=== PATIENT | female | born 1940 | race Two or more races ===

== ENCOUNTER 2019-03-12 12:03 | Outpatient (CLI) | payer OTHER | END 2019-03-12 12:13 | disposition home or self-care (01) | LOC: MAMO-SONO 12:03 | DX: Z12.31 Encounter for screening mammogram for malignant neoplasm of breast (principal); Z87.898 Personal history of other specified conditions; D05.12 Intraductal carcinoma in situ of left breast; N60.11 Diffuse cystic mastopathy of right breast; N60.12 Diffuse cystic mastopathy of left breast ==

== ENCOUNTER 2020-06-06 06:32 | Day surgery (SDC) | payer OTHER ==
[~2020-06-06 06:32] MED LIST: ARIMIDEX PO; LEVO-T50 MCG PO; LOSARTAN POTASS25 MG PO; MAXIMUM D3325 MCG PO; SIMVASTATIN20 MG PO
== END 2020-06-06 15:35 | disposition home or self-care (01) ==
LOC: CIR.AMB 06:32
PROVIDERS: ATTEND Surgery
DX: C50.411 Malignant neoplasm of upper-outer quadrant of right female breast (principal); C77.3 Secondary and unspecified malignant neoplasm of axilla and upper limb lymph nodes; Z20.828 Contact with and (suspected) exposure to other viral communicable diseases

== ENCOUNTER 2020-10-09 13:53 | Emergency (ER) | payer OTHER ==
[~2020-10-09] VITALS: Ht 157.5 cm; Wt 55.8 kg
[2020-10-09] MEDS ORDERED: IBRANCE100 MG PO (14:04)
[2020-10-09] MEDS ORDERED: PERCOCET 5-3251 EACH PO (16:31)
[2020-10-09] MEDS ORDERED: SKELAXIN800 MG PO (16:31)
[2020-10-09] MEDS ORDERED: DICLOFENAC POTA50 MG PO (16:31)
[2020-10-09] MEDS ORDERED: SKELAGESIC TOP (16:31)
== END 2020-10-09 17:58 | disposition home or self-care (01) ==
LOC: ER 13:53
DX: G89.21 Chronic pain due to trauma (principal); M54.5 Low back pain

== ENCOUNTER 2020-10-12 23:15 | Inpatient (IN) | payer OTHER ==
[~2020-10-12] VITALS: Ht 157.5 cm; Wt 55.8 kg
[~2020-10-12 23:15] MED LIST changes: +DICLOFENAC POTA50 MG PO; +IBRANCE100 MG PO; +PERCOCET 5-3251 EACH PO; +SKELAGESIC TOP; +SKELAXIN800 MG PO
== END 2020-10-17 21:10 | disposition home or self-care (01) | DRG 543 ==
LOC: ER 23:15 → MEDI 10-13 10:07 → SURH 10-13 20:01 → MEDI 10-13 20:47
PROVIDERS: ADMIT Internal Medicine; ATTEND Internal Medicine
DX: M48.56XA Collapsed vertebra, not elsewhere classified, lumbar region, initial encounter for fracture (principal); N39.0 Urinary tract infection, site not specified; C50.911 Malignant neoplasm of unspecified site of right female breast; I10 Essential (primary) hypertension; Z20.822 Contact with and (suspected) exposure to COVID-19; M48.54XA Collapsed vertebra, not elsewhere classified, thoracic region, initial encounter for fracture
CPT/HCPCS: 72146; 72158

== ENCOUNTER 2021-09-13 15:45 | Emergency (ER) | payer OTHER ==
[~2021-09-13] VITALS: Ht 152.4 cm; Wt 51.7 kg
== END 2021-09-14 00:02 | disposition home or self-care (01) ==
LOC: ER 15:45
DX: M54.50 Low back pain, unspecified (principal); M62.830 Muscle spasm of back; Z91.018 Allergy to other foods; E03.9 Hypothyroidism, unspecified; I10 Essential (primary) hypertension; Z85.9 Personal history of malignant neoplasm, unspecified

== ENCOUNTER 2022-05-13 17:58 | Emergency (ER) | payer OTHER ==
[~2022-05-13] VITALS: Ht 154.9 cm; Wt 49.9 kg
[2022-05-13] MEDS ORDERED: PEPCID AC20 MG PO (23:39)
== END 2022-05-14 00:26 | disposition home or self-care (01) ==
LOC: ER 17:58
DX: R11.2 Nausea with vomiting, unspecified (principal); R53.1 Weakness; I10 Essential (primary) hypertension; E03.9 Hypothyroidism, unspecified; Z85.9 Personal history of malignant neoplasm, unspecified; Z91.018 Allergy to other foods; Z20.822 Contact with and (suspected) exposure to COVID-19

== ENCOUNTER 2022-09-04 15:28 | Emergency (ER) | payer OTHER ==
[~2022-09-04] VITALS: Ht 154.9 cm; Wt 50.8 kg
[~2022-09-04 15:28] MED LIST changes: +IBRANCE75 M1; +PEPCID AC20 MG PO
[2022-09-04] MEDS ORDERED: MIRTAZAPINE7.5 MG (16:10)
[2022-09-04] MEDS ORDERED: ATORVASTATIN CA20 MG (16:10)
== END 2022-09-04 20:53 | disposition home or self-care (01) ==
LOC: ER 15:28
DX: S09.8XXA Other specified injuries of head, initial encounter (principal); W18.39XA Other fall on same level, initial encounter; Y93.89 Activity, other specified; Y92.018 Other place in single-family (private) house as the place of occurrence of the external cause; S69.82XA Other specified injuries of left wrist, hand and finger(s), initial encounter; S89.82XA Other specified injuries of left lower leg, initial encounter; Z91.041 Radiographic dye allergy status; Z91.040 Latex allergy status; Z91.018 Allergy to other foods

== ENCOUNTER 2022-10-05 18:08 | Inpatient (IN) | payer OTHER ==
[~2022-10-05] VITALS: Ht 154.9 cm; Wt 49.9 kg
[~2022-10-05 18:08] MED LIST changes: +ATORVASTATIN CA20 MG; +MIRTAZAPINE7.5 MG
--- NOTE | 2022-10-05 19:03 | NUR ---
SE RECIBE PTE ALERTA Y ORIENTADA X3 EN AMBULANCIA [place] DE FAMILIAR, PTE REFIERE VENIR POR CAIDA Y DOLOR EN CADERA. SE MIDEN S/V A PTE Y SE COLOCAN EN FRANCISCA.
--- NOTE | 2022-10-05 19:13 | NUR ---
SE EDUCA A PTE SOBRE TX MEDICO ESTA REFIERE ENTENDER, SE ENZO MUESTRAS DE LABORATORIO UTILIZANDO MEDIDAS ASEPTICAS, SE COLOCA H/L A PTE Y SE ADMINISTRAN MEDICAMENTOS LOS CUALES TOLERA. SE COLOCA YANG UTILIZANDO MEDIDAS ESTERILES. SE NOTIFICA ESTUDIO DE RX PENDIENTE.
[2022-10-11] MEDS ORDERED: PERCOCET 5-3251 EACH PO (08:17)
[2022-10-11] MEDS ORDERED: ELIQUIS2.5 MG PO (08:17)
[2022-10-11] MEDS ORDERED: LEVOFLOXACIN750 MG PO (15:55)
== END 2022-10-11 22:29 | DRG 522 ==
LOC: ER 18:08 → SURG 20:52
PROVIDERS: ADMIT Orthopaedic Surgery; ATTEND Orthopaedic Surgery
PROC: 0MBM0ZZ Excision of Left Hip Bursa and Ligament, Open Approach (ICD-10-PCS; 2022-10-07)
PROC: 0SR90JA Replacement of Right Hip Joint with Synthetic Substitute, Uncemented, Open Approach (ICD-10-PCS; principal; 2022-10-07 14:00)
DX: S72.031A Displaced midcervical fracture of right femur, initial encounter for closed fracture (principal); D62 Acute posthemorrhagic anemia; C79.51 Secondary malignant neoplasm of bone; M81.0 Age-related osteoporosis without current pathological fracture; M16.11 Unilateral primary osteoarthritis, right hip; Z96.641 Presence of right artificial hip joint; Z20.822 Contact with and (suspected) exposure to COVID-19; E03.9 Hypothyroidism, unspecified; I10 Essential (primary) hypertension; W19.XXXA Unspecified fall, initial encounter; A49.3 Mycoplasma infection, unspecified site; C50.911 Malignant neoplasm of unspecified site of right female breast

== ENCOUNTER 2022-12-25 23:28 | Inpatient (IN) | payer OTHER ==
[~2022-12-25] VITALS: Ht 154.9 cm; Wt 49.0 kg
[~2022-12-25 23:28] MED LIST changes: +ELIQUIS2.5 MG PO; +LEVOFLOXACIN750 MG PO
== END 2023-01-05 12:23 | disposition home or self-care (01) | DRG 690 ==
LOC: ER 23:28 → MEDI 12-26 16:08
PROVIDERS: General Practice; Internal Medicine; ADMIT Internal Medicine; ATTEND Internal Medicine
PROC: BW21ZZZ Computerized Tomography (CT Scan) of Abdomen and Pelvis (ICD-10-PCS; 2022-12-26)
PROC: 02HV33Z Insertion of Infusion Device into Superior Vena Cava, Percutaneous Approach (ICD-10-PCS; principal; 2022-12-27)
PROC: BW21ZZZ Computerized Tomography (CT Scan) of Abdomen and Pelvis (ICD-10-PCS; 2023-01-01)
DX: N39.0 Urinary tract infection, site not specified (principal); R31.0 Gross hematuria; N13.1 Hydronephrosis with ureteral stricture, not elsewhere classified; D64.9 Anemia, unspecified; I10 Essential (primary) hypertension; E03.9 Hypothyroidism, unspecified; Z20.822 Contact with and (suspected) exposure to COVID-19

== ENCOUNTER 2023-04-21 07:56 | Emergency (ER) | payer OTHER ==
[~2023-04-21] VITALS: Ht 157.5 cm; Wt 45.4 kg
[2023-04-21] MEDS ORDERED: ANASTROZOLE1 MG PO (08:15)
[2023-04-21 09:01] LABS: HEMATOCRIT 43.2 % (36.0-45.00); HEMOGLOBIN 14.5 g/dL (12.0-15.00); MEAN CORPUSCULAR HEMOGLOBIN 30.5 pg (27.00-32.0); MEAN CORPUSCULAR HGB CONC 33.6 g/dl (32.0-36.0); PLATELET COUNT 229 K/uL (150-450); RED BLOOD COUNT 4.74 M/uL (4.00-6.00); RED CELL DISTRIBUTION WIDTH 15.5 % (11.5-14.5)
[2023-04-21 09:31] LABS: CALCIUM 10.1 mg/dL (8.5-10.1); CREATININE SERUM 0.7 mg/dL (0.55-1.02); GFR 79.72; POTASSIUM 4.46 mEq/L (3.5-5.1)
[2023-04-21 17:02] LABS: PH,URINE 7.5 (5.0-8.0); URINE APPEARANCE Cloudy; URINE BILIRRUBIN Negative (NEGATIVE); URINE BLOOD Small; URINE COLOR Yellow; URINE GLUCOSE Negative (NEGATIVE); URINE LEUKOCYTE Large; URINE NITRATE Positive; URINE PROTEIN Trace (NEGATIVE); URINE UROBILINOGEN 0.2 E.U./dl
[2023-04-21 17:03] LABS: URINE EPITHELIAL CELLS 1.8 uL (0.0-38.8); URINE RBC 19.9 uL (0.0-20.8); URINE WBC 1262.1 uL (0.0-23.2)
[2023-04-21 17:20] LABS: URINE BACTERIA > 9821.5 uL (0.0-1933)
== END 2023-04-22 00:31 | disposition home or self-care (01) ==
LOC: ER 07:56
PROVIDERS: Emergency Medicine
DX: N39.0 Urinary tract infection, site not specified (principal); E78.00 Pure hypercholesterolemia, unspecified; E03.9 Hypothyroidism, unspecified; I10 Essential (primary) hypertension; Z91.040 Latex allergy status; Z91.018 Allergy to other foods; Z91.041 Radiographic dye allergy status; G30.8 Other Alzheimer's disease; F02.80 Dementia in other diseases classified elsewhere, unspecified severity, without behavioral disturbance, psychotic disturbance, mood disturbance, and anxiety; Z74.01 Bed confinement status; B96.4 Proteus (mirabilis) (morganii) as the cause of diseases classified elsewhere
CPT/HCPCS: 36415; 96365; 96366; 99284; J0744; J7030

== ENCOUNTER 2023-12-10 21:50 | Inpatient (IN) | payer OTHER ==
[~2023-12-10] VITALS: Ht 152.4 cm; Wt 45.4 kg
[~2023-12-10 21:50] MED LIST changes: +ANASTROZOLE1 MG PO; +CEFDINIR300 MG PO
--- NOTE | 2023-12-10 21:53 | NUR ---
PACIENTE ALERTA Y ORIENTADA X3 CON YANG DESDE BRITTNY QUE REFIERE QUE DESDE EL BRODY DE GABRIELLE PRESENTA ANURIA. REFIERE DOLOR EN EL AREA DEL ABDOMEN.
--- NOTE | 2023-12-10 23:15 | NUR ---
SE LE ORIENTA A PACIENTE SOBRE LA ORDEN MEDICA, REFIERE ENTENDER LAS MISMAS. SE LE ENZO LAS MUETRAS, SE REALIZA CAMBIO DE YANG CON MEDIDAS ASEPTICAS MAS ESTERILES Y SE REALIZA CT KRAIG LA ORDEN MEDICA.
[2023-12-10 23:37] LABS: HEMATOCRIT 46.7 % (36.0-45.00); HEMOGLOBIN 15.8 g/dL (12.0-15.00); MEAN CELL VOLUME 91.3 fL (80.00-100.00); MEAN CORPUSCULAR HEMOGLOBIN 30.8 pg (27.00-32.0); MEAN CORPUSCULAR HGB CONC 33.8 g/dl (32.0-36.0); PLATELET COUNT 230 K/uL (150-450); RED BLOOD COUNT 5.11 M/uL (4.00-6.00); RED CELL DISTRIBUTION WIDTH 13.7 % (11.5-14.5)
[2023-12-10 23:57] LABS: INR 1.01; PARTIAL THROMBOPLASTIN TIME 26.2 SECONDS (22.0-34.0); PROTHROMBIN TIME 10.6 SECONDS (9.0-11.5)
[2023-12-11 00:02] LABS: ALBUMIN 3.3 gm/dL (3.4-5.0); BILIRUBIN TOTAL 0.26 mg/dL (0.3-1.2); CALCIUM 9.8 mg/dL (8.5-10.1); CREATININE SERUM 0.71 mg/dL (0.55-1.02); GFR 78.43; GLOBULINA 4.5 G/DL (2.4-3.5); POTASSIUM 4.62 mEq/L (3.5-5.1); TOTAL PROTEIN 7.8 gm/dL (6.4-8.2)
[2023-12-11 00:05] LABS: URINE APPEARANCE Turbid; URINE BILIRRUBIN Negative (NEGATIVE); URINE BLOOD Moderate; URINE COLOR Yellow; URINE GLUCOSE Negative (NEGATIVE); URINE KETONE Negative (NEGATIVE); URINE LEUKOCYTE Large; URINE NITRATE Positive; URINE PROTEIN 30 (NEGATIVE); URINE UROBILINOGEN 0.2 E.U./dl
[2023-12-11 00:08] LABS: URINE CAST 1.83 uL (0.0-1.40); URINE EPITHELIAL CELLS 1.8 uL (0.0-38.8); URINE RBC 53.5 uL (0.0-20.8)
[2023-12-11 00:26] LABS: URINE BACTERIA > 9821.5 uL (0.0-1933); URINE WBC > 5548.3 uL (0.0-23.2)
[2023-12-11] MEDS ORDERED: CIPROFLOXACIN IN 5 % DEXTROSE 400 MG/200 ML PIGGYBAG IV ONE ×2 (00:30→00:31)
--- NOTE | 2023-12-11 00:48 | NUR ---
SE EDUCA A PTE Y A FAMILIAR SOBRE USO Y EFECTO DE MEDICACION POR ORDEN MEDICA LA MISMA REFIERE ENTENDER. SE CANALIZA EN KARENO INOCENCIO #20 POR DONDE SE COLOCA MEDICACION AL CUAL PTE NO PRESENTA REACCION ADVERSA. SE TODD LA MISMA BAJO COMODIDAD CON BARANDAS ELEVADAS EN SEGUIMIENTO DE [place].
[2023-12-11] MEDS ORDERED: 0.9 % SODIUM CHLORIDE 1,000 ML IV SCH ×2 (07:45→17:45)
--- NOTE | 2023-12-11 07:46 | NUR ---
SE RECIBE PTE DEL TURNO ANTERIOR ALERTA Y ORIENTADA X3 EN CAMA #12 CON BARANDAS ELEVADAS. SE ORIENTA SOBRE CONTINUIDAD DE CUIDADO CLINICO. PTE CON CELIA
[2023-12-11] MEDS ORDERED: CIPROFLOXACIN IN 5 % DEXTROSE 200 ML IV SCH (09:00)
[2023-12-11] MEDS ORDERED: CEFTRIAXONE SODIUM 2,000 MG in 0.9 % SODIUM CHLORIDE 100 ML IV SCH (17:00)
[2023-12-11] MEDS ORDERED: FAMOTIDINE/PF 20 MG in 0.9 % SODIUM CHLORIDE 100 ML IV SCH (17:00)
[2023-12-11] MEDS ORDERED: ACETAMINOPHEN 325 MG TABLET PO PRN (17:15)
[2023-12-11] MEDS ORDERED: CEFTRIAXONE SODIUM 2,000 MG VIAL ONE (17:20)
[2023-12-11] MEDS ORDERED: FAMOTIDINE/PF 20 MG/2 ML VIAL ONE (17:20)
[2023-12-11] MEDS ORDERED: APIXABAN 2.5 MG TABLET PO SCH (17:34)
[2023-12-11] MEDS ORDERED: LOSARTAN POTASSIUM 25 MG TABLET PO SCH (17:35)
[2023-12-11] MEDS ORDERED: LACTULOSE 10 G/15 ML ML PO ONE (18:00)
[2023-12-11 19:15] LABS: INR 1.05; PARTIAL THROMBOPLASTIN TIME 25.8 SECONDS (22.0-34.0)
[2023-12-12] MEDS ORDERED: LEVOTHYROXINE SODIUM 25 MCG TABLET PO SCH (06:00)
[2023-12-12 06:23] LABS: HEMATOCRIT 39.4 % (36.0-45.00); HEMOGLOBIN 14.1 g/dL (12.0-15.00); MEAN CELL VOLUME 90.7 fL (80.00-100.00); MEAN CORPUSCULAR HEMOGLOBIN 32.5 pg (27.00-32.0); MEAN CORPUSCULAR HGB CONC 35.8 g/dl (32.0-36.0); PLATELET COUNT 431 K/uL (150-450); RED BLOOD COUNT 4.34 M/uL (4.00-6.00); RED CELL DISTRIBUTION WIDTH 14.2 % (11.5-14.5)
[2023-12-12] MEDS ORDERED: ANASTROZOLE 1 MG PO SCH (09:00)
[2023-12-12] MEDS ORDERED: FAMOTIDINE/PF 20 MG in 0.9 % SODIUM CHLORIDE 100 ML IV SCH (09:00)
[2023-12-12] MEDS ORDERED: LOSARTAN POTASSIUM 25 MG TABLET PO NR (18:30)
[2023-12-12] MEDS ORDERED: SODIUM CHLORIDE 0.45 % 1,000 ML IV SCH (18:30)
[2023-12-13 06:44] LABS: HEMATOCRIT 39.8 % (36.0-45.00); HEMOGLOBIN 13.5 g/dL (12.0-15.00); MEAN CELL VOLUME 90.8 fL (80.00-100.00); MEAN CORPUSCULAR HEMOGLOBIN 30.7 pg (27.00-32.0); MEAN CORPUSCULAR HGB CONC 33.8 g/dl (32.0-36.0); PLATELET COUNT 186 K/uL (150-450); RED BLOOD COUNT 4.39 M/uL (4.00-6.00); RED CELL DISTRIBUTION WIDTH 13.5 % (11.5-14.5)
[2023-12-13 07:13] LABS: ALBUMIN 2.7 gm/dL (3.4-5.0); BILIRUBIN TOTAL 0.28 mg/dL (0.3-1.2); CALCIUM 9.2 mg/dL (8.5-10.1); CREATININE SERUM 0.42 mg/dL (0.55-1.02); GFR 143.74; GLOBULINA 3.7 G/DL (2.4-3.5); MAGNESIUM 2.1 mg/dL (1.8-2.4); PHOSPHOROUS 4.5 mg/dL (2.5-4.9); POTASSIUM 4.61 mEq/L (3.5-5.1); TOTAL PROTEIN 6.4 gm/dL (6.4-8.2)
[2023-12-13 07:14] LABS: C-REACTIVE PROTEIN 2.14 MG/DL (0.00-0.29)
[2023-12-13] MEDS ORDERED: LOSARTAN POTASSIUM 50 MG TABLET PO SCH (09:00)
[2023-12-13] MEDS ORDERED: FAMOTIDINE/PF 20 MG in 0.9 % SODIUM CHLORIDE 100 ML IV SCH (09:00)
[2023-12-14 11:34] LABS: PH,URINE 7.5 (5.0-8.0); URINE APPEARANCE Clear; URINE BILIRRUBIN Negative (NEGATIVE); URINE BLOOD Negative; URINE COLOR Yellow; URINE GLUCOSE Negative (NEGATIVE); URINE KETONE Negative (NEGATIVE); URINE LEUKOCYTE Moderate; URINE NITRATE Negative; URINE PROTEIN Negative (NEGATIVE); URINE UROBILINOGEN 0.2 E.U./dl
[2023-12-14 11:37] LABS: URINE BACTERIA 55.4 uL (0.0-1933); URINE EPITHELIAL CELLS 2.4 uL (0.0-38.8); URINE RBC 7.6 uL (0.0-20.8); URINE WBC 29.3 uL (0.0-23.2)
[2023-12-14 11:52] LABS: URINE CAST 0.15 uL (0.0-1.40)
[2023-12-14] MEDS ORDERED: MINERAL OIL 133 ML ENEMA RECTAL NR (14:15)
[2023-12-14] MEDS ORDERED: MINERAL OIL 30 ML BLIST.PACK PO NR (14:15)
[2023-12-14] MEDS ORDERED: MAGNESIUM HYDROXIDE 30 ML BLIST.PACK PO NR (14:15)
[2023-12-14] MEDS ORDERED: LACTULOSE 20 G/30 ML BLIST.PACK PO NR (14:31)
[2023-12-15 06:52] LABS: HEMATOCRIT 41.2 % (36.0-45.00); MEAN CELL VOLUME 91.2 fL (80.00-100.00); PLATELET COUNT 210 K/uL (150-450); RED BLOOD COUNT 4.52 M/uL (4.00-6.00); RED CELL DISTRIBUTION WIDTH 13.8 % (11.5-14.5)
[2023-12-15 07:26] LABS: ALBUMIN 2.8 gm/dL (3.4-5.0); BILIRUBIN TOTAL 0.51 mg/dL (0.3-1.2); CALCIUM 9.2 mg/dL (8.5-10.1); CREATININE SERUM 0.43 mg/dL (0.55-1.02); GFR 139.89; MAGNESIUM 2.4 mg/dL (1.8-2.4); POTASSIUM 4.42 mEq/L (3.5-5.1); TOTAL PROTEIN 6.8 gm/dL (6.4-8.2)
[2023-12-15] MEDS ORDERED: MAGNESIUM HYDROXIDE 30 ML BLIST.PACK PO SCH (10:00)
[2023-12-15] MEDS ORDERED: MINERAL OIL 30 ML BLIST.PACK PO SCH (10:00)
[2023-12-15] MEDS ORDERED: LACTULOSE 20 G/30 ML BLIST.PACK PO SCH (10:00)
[2023-12-15] MEDS ORDERED: AMLODIPINE BESYLATE 5 MG TABLET PO SCH (17:00)
[2023-12-16] MEDS ORDERED: CEFDINIR300 MG PO (17:02)
[2023-12-16] MEDS ORDERED: AMLODIPINE BESYL5 MG PO (17:02)
[2023-12-16] MEDS ORDERED: KRISTALOSE20 GM PO (17:04)
== END 2023-12-16 17:43 | disposition home or self-care (01) | DRG 690 ==
LOC: ER 21:50 → MEDI 12-11 17:46
PROVIDERS: General Practice; Internal Medicine Infectious Disease; ADMIT Internal Medicine; ATTEND Internal Medicine
PROC: BW21ZZZ Computerized Tomography (CT Scan) of Abdomen and Pelvis (ICD-10-PCS; principal; 2023-12-10)
PROC: B020ZZZ Computerized Tomography (CT Scan) of Brain (ICD-10-PCS; 2023-12-13)
DX: N39.0 Urinary tract infection, site not specified (principal); K56.41 Fecal impaction; E03.8 Other specified hypothyroidism; Z74.01 Bed confinement status; B96.4 Proteus (mirabilis) (morganii) as the cause of diseases classified elsewhere; D72.829 Elevated white blood cell count, unspecified; R41.82 Altered mental status, unspecified; I10 Essential (primary) hypertension

== ENCOUNTER 2025-04-04 22:07 | Inpatient (IN) | payer OTHER ==
[~2025-04-04] VITALS: Ht 157.5 cm; Wt 63.5 kg
[~2025-04-04 22:07] MED LIST changes: +AMLODIPINE BESYL5 MG PO; +KRISTALOSE20 GM PO
--- NOTE | 2025-04-04 22:35 | NUR ---
PACIENTE ALERTA Y ORIENTADA EN COMPANIA DE HIJA QUE DORITA PACIENTE VIENE POR PROBLEMAS AL ORINAR LA MISMA CON YANG DESDE LA RESIDENCIA. FAMILIAR REFIERE PACIENTE LE FUE COLOCADO UN YANG VIERNES PASADO EN AMBROCIO RESIDENCIA Y TIENE MUY RECURRENTE INFECCIONES DE ORINA. LA MAMISA EN PACIENTE DE DR. GARCIA GARLAND.
[2025-04-05 02:25] LABS: BASO % 0.1 % (0.1-1.2); EOS # 0.00 (0.04-0.54); EOS % 0.0 % (0.7-7.0); LYMPH # 1.67 (1.18-3.74); LYMPH % 10.6 % (19.3-53.1); MEAN PLATELET VOLUME 9.60 fl (9.4-12.4); MONO # 1.22 (0.24-0.82); MONO % 7.7 % (4.7-12.5); NEUT # 12.77 (1.56-6.13); NEUT % 81.2 % (34.0-71.1); RED CELL DISTRIBUTION WIDTH 14.6 % (11.6-14.4)
--- NOTE | 2025-04-05 02:30 | NUR ---
SE ORIENTA FAMILIAR DE PTE SOBRE TRATATMIENTO MEDICO Y SE EJECUTA EN AMBROCIO TOTALIDAD
[2025-04-05 02:31] LABS: ERYTHROCYTE SEDIMENTATION RATE 122 mm/hr (0-30)
[2025-04-05 02:33] LABS: INR 1.05
[2025-04-05 02:38] LABS: ALT/SGPT 15.0 U/L (12-78); AST/SGOT 16.0 U/L (15-37); BILIRUBIN TOTAL 0.49 mg/dL (0.3-1.2); BUN CREA RATIO 26.0 (7.0-25.0); CREATININE SERUM 0.89 mg/dL (0.55-1.02); GFR 60.14; GLOBULINA 4.9 G/DL (2.4-3.5); GLUCOSE FASTING 174.0 mg/dL (65-100); OSMOLALITY SERUM 284.0 MOSM/KG (275-295)
[2025-04-05] MEDS ORDERED: CEFTRIAXONE SODIUM 1,000 MG VIAL IV STA (06:29)
[2025-04-05] MEDS ORDERED: CEFTRIAXONE SODIUM 1,000 MG VIAL ONE (07:26)
[2025-04-05] MEDS ORDERED: FAMOTIDINE/PF 20 MG/2 ML VIAL ONE ×2 (07:49→17:22)
[2025-04-05] MEDS ORDERED: FAMOTIDINE/PF 20 MG/2 ML VIAL IV PUSH STA (07:53)
[2025-04-05] MEDS ORDERED: 0.9 % SODIUM CHLORIDE 1,000 ML IV ONE (08:00)
[2025-04-05 08:03] LABS: URINE APPEARANCE Turbid; URINE BILIRRUBIN Negative (NEGATIVE); URINE BLOOD Large; URINE COLOR Dark Yellow; URINE GLUCOSE Negative (NEGATIVE); URINE KETONE Negative (NEGATIVE); URINE LEUKOCYTE Large; URINE NITRATE Negative; URINE UROBILINOGEN 0.2 E.U./dl
--- NOTE | 2025-04-05 08:11 | NUR ---
SE COLECTA MUESTRA DE UA MEDIANTE MEDIDAS ASEPTICAS. SE LLEVA PERSONALMENTE MUESTRA A LABORATORIO.
[2025-04-05 08:27] LABS: URINE CAST 3.10 uL (0.0-1.40); URINE EPITHELIAL CELLS 41.6 uL (0.0-38.8); URINE RBC 1243.0 uL (0.0-20.8)
[2025-04-05 08:32] LABS: URINE BACTERIA > 9821.5 uL (0.0-1933); URINE PROTEIN 300 (NEGATIVE); URINE WBC > 5548.3 uL (0.0-23.2)
[2025-04-05 08:34] LABS: URINE CRYSTALS MODERATE /HPF
[2025-04-05] MEDS ORDERED: FAMOTIDINE/PF 20 MG in 0.9 % SODIUM CHLORIDE 100 ML IV SCH (14:03)
[2025-04-05] MEDS ORDERED: ACETAMINOPHEN 500 MG GEL..CAP PO SCH (14:03)
[2025-04-05] MEDS ORDERED: MEROPENEM 500 MG in 0.9 % SODIUM CHLORIDE 50 ML IV SCH (17:00)
[2025-04-05] MEDS ORDERED: ACETAMINOPHEN 500 MG GEL..CAP PO PRN (20:05)
[2025-04-06 01:53] VITALS: BP 130/80; O2SAT 97
[2025-04-06] MEDS ORDERED: LEVOTHYROXINE SODIUM 25 MCG TABLET PO SCH (06:00)
[2025-04-06 08:10] LABS: BUN CREA RATIO 42.0 (7.0-25.0); CREATININE SERUM 0.43 mg/dL (0.55-1.02); GFR 139.22; GLUCOSE FASTING 81.0 mg/dL (65-100); OSMOLALITY SERUM 295.0 MOSM/KG (275-295)
[2025-04-06 08:21] VITALS: BP 140/72; O2SAT 98
[2025-04-06] MEDS ORDERED: LEVOTHYROXINE SODIUM 50 MCG TABLET PO SCH (09:00)
[2025-04-06 13:27] LABS: INR 1.06
[2025-04-06] MEDS ORDERED: MEROPENEM 500 MG in 0.9 % SODIUM CHLORIDE 50 ML IV SCH (18:00)
[2025-04-06 18:23] LABS: BASO % 0.2 % (0.1-1.2); EOS # 0.34 (0.04-0.54); EOS % 3.6 % (0.7-7.0); LYMPH # 3.09 (1.18-3.74); LYMPH % 33.2 % (19.3-53.1); MEAN PLATELET VOLUME 9.80 fl (9.4-12.4); MONO # 0.99 (0.24-0.82); MONO % 10.6 % (4.7-12.5); NEUT # 4.85 (1.56-6.13); NEUT % 52.1 % (34.0-71.1); RED CELL DISTRIBUTION WIDTH 15.3 % (11.6-14.4)
[2025-04-06 18:24] VITALS: BP 113/65
[2025-04-07 01:58] VITALS: BP 150/63; O2SAT 98
[2025-04-07 07:49] LABS: BASO % 0.4 % (0.1-1.2); EOS # 0.50 (0.04-0.54); EOS % 5.9 % (0.7-7.0); LYMPH # 3.57 (1.18-3.74); LYMPH % 42.4 % (19.3-53.1); MEAN PLATELET VOLUME 9.70 fl (9.4-12.4); MONO # 0.85 (0.24-0.82); MONO % 10.1 % (4.7-12.5); NEUT # 3.44 (1.56-6.13); NEUT % 41.0 % (34.0-71.1); RED CELL DISTRIBUTION WIDTH 15.0 % (11.6-14.4)
[2025-04-07 07:57] LABS: URINE APPEARANCE Cloudy; URINE BILIRRUBIN Negative (NEGATIVE); URINE BLOOD Moderate; URINE COLOR Yellow; URINE GLUCOSE Negative (NEGATIVE); URINE KETONE Trace (NEGATIVE); URINE LEUKOCYTE Large; URINE NITRATE Negative; URINE UROBILINOGEN 0.2 E.U./dl
[2025-04-07 08:01] LABS: URINE EPITHELIAL CELLS 4.9 uL (0.0-38.8); URINE RBC 115.1 uL (0.0-20.8); URINE WBC 1676.5 uL (0.0-23.2)
[2025-04-07 08:08] LABS: URINE CAST 0.99 uL (0.0-1.40); URINE PROTEIN 100 (NEGATIVE)
[2025-04-07 08:25] LABS: ALT/SGPT 15.0 U/L (12-78); AST/SGOT 21.0 U/L (15-37); BILIRUBIN TOTAL 0.37 mg/dL (0.3-1.2); BUN CREA RATIO 33.0 (7.0-25.0); CREATININE SERUM 0.4 mg/dL (0.55-1.02); GFR 151.34; GLOBULINA 3.9 G/DL (2.4-3.5); GLUCOSE FASTING 76.0 mg/dL (65-100); OSMOLALITY SERUM 284.0 MOSM/KG (275-295)
[2025-04-07 09:40] VITALS: BP 145/68; O2SAT 97
[2025-04-07 18:17] VITALS: BP 146/78
[2025-04-07] MEDS ORDERED: PATIENTS OWN MEDICATION (MEDICAMENTO EN PISO) PO SCH (21:00)
[2025-04-08 03:02] VITALS: BP 149/75; O2SAT 96
[2025-04-08 09:16] VITALS: BP 152/73; O2SAT 96
[2025-04-08] MEDS ORDERED: LORazepam 2 MG/ML VIAL IV PUSH PRN (16:30)
[2025-04-08] MEDS ORDERED: SODIUM CHLORIDE 0.45 % 1,000 ML IV SCH (16:30)
[2025-04-08] MEDS ORDERED: MAGNESIUM HYDROXIDE 30 ML BLIST.PACK PO NR (17:00)
[2025-04-08] MEDS ORDERED: AMLODIPINE BESYLATE 5 MG TABLET PO SCH (17:00)
[2025-04-08 18:25] VITALS: BP 148/74
[2025-04-09 02:58] VITALS: BP 132/77; O2SAT 99
[2025-04-09] MEDS ORDERED: LOSARTAN POTASSIUM 25 MG TABLET PO SCH (09:00)
[2025-04-09 09:31] VITALS: BP 142/72; O2SAT 96
[2025-04-09 18:49] VITALS: BP 119/82; O2SAT 97
[2025-04-10 02:43] VITALS: BP 154/61; O2SAT 96
[2025-04-10] MEDS ORDERED: MEROPENEM 500 MG/VIAL VIAL IV ONE (05:46)
[2025-04-10 08:55] VITALS: BP 138/72
[2025-04-10 16:43] VITALS: BP 141/74; O2SAT 96
== END 2025-04-10 17:14 | disposition home or self-care (01) | DRG 690 ==
LOC: ER 22:07 → SEC-K 04-05 14:12 → MEDI 04-05 14:12
PROVIDERS: Internal Medicine Infectious Disease; Physician Assistant Medical; ADMIT Internal Medicine; ATTEND Internal Medicine
PROC: BW21ZZZ Computerized Tomography (CT Scan) of Abdomen and Pelvis (ICD-10-PCS; principal; 2025-04-04)
PROC: B54NZZZ Ultrasonography of Left Upper Extremity Veins (ICD-10-PCS; 2025-04-09)
DX: N39.0 Urinary tract infection, site not specified (principal); R65.10 Systemic inflammatory response syndrome (SIRS) of non-infectious origin without acute organ dysfunction; R33.9 Retention of urine, unspecified; D72.829 Elevated white blood cell count, unspecified; N13.30 Unspecified hydronephrosis; C50.919 Malignant neoplasm of unspecified site of unspecified female breast; I10 Essential (primary) hypertension; T83.511A Infection and inflammatory reaction due to indwelling urethral catheter, initial encounter